=== PATIENT | female | born 1960 | race African-American/Black ===

== ENCOUNTER 2018-10-02 18:43 | Emergency (ER) | payer SELFPAY ==
[2018-10-02] MEDS ORDERED: diphenhydrAMINE 50 MG/ML VIAL ONE (22:20)
[2018-10-02] MEDS ORDERED: Metoclopramide HCl 10 MG/2 ML VIAL ONE (22:20)
--- NOTE | 2018-10-02 22:28 | CT ---
CT head noncontrast HISTORY: Headache. FINDINGS: No comparison. There is no evidence of acute intracranial hemorrhage or infarct. Ventricles appear normal in size, shape and position. Prominent ossification of the anterior falx. Visualized paranasal sinuses remain well-aerated. IMPRESSION: No acute intracranial abnormalities are demonstrated.
--- NOTE | 2018-10-02 22:29 | RAD ---
Left shoulder 3 views HISTORY: Left shoulder pain. FINDINGS: Acromioclavicular and glenohumeral alignment are maintained with mild osteophytosis. No acu te fracture, dislocation, or aggressive osseous erosions. IMPRESSION: Mild degenerative changes left shoulder.
== END 2018-10-03 00:32 | disposition home or self-care (01) ==
LOC: ERS 18:43
DX: R51 Headache (principal); F32.9 Major depressive disorder, single episode, unspecified
CPT/HCPCS: 70450; 96365; 96375; J1200; J2765

== ENCOUNTER 2018-10-15 11:01 | Emergency (ER) | payer SELFPAY | END 2018-10-15 14:15 | disposition home or self-care (01) | LOC: ERS 11:01 | DX: R51 Headache (principal); F32.9 Major depressive disorder, single episode, unspecified | CPT/HCPCS: 99283 ==

== ENCOUNTER 2018-10-19 08:25 | Emergency (ER) | payer SELFPAY | END 2018-10-19 09:35 | disposition home or self-care (01) | LOC: ERS 08:25 | DX: J20.9 Acute bronchitis, unspecified (principal); F32.9 Major depressive disorder, single episode, unspecified | CPT/HCPCS: 99284 ==

== ENCOUNTER 2024-07-10 11:10 | Emergency (ER) | payer SELFPAY ==
[2024-07-10] MEDS ORDERED: Ketorolac Tromethamine 30 MG (1 mL) VIAL ONE (11:25)
== END 2024-07-10 11:30 | disposition home or self-care (01) ==
LOC: ERS 11:10
DX: M17.12 Unilateral primary osteoarthritis, left knee (principal); I10 Essential (primary) hypertension; Z55.6 Problems related to health literacy; Z75.3 Unavailability and inaccessibility of health-care facilities
CPT/HCPCS: 99283; J1885

== ENCOUNTER 2024-07-19 09:27 | Emergency (ER) | payer SELFPAY ==
[2024-07-19] MEDS ORDERED: Ketorolac Tromethamine 30 MG (1 mL) VIAL ONE (10:32)
== END 2024-07-19 10:45 | disposition home or self-care (01) ==
LOC: ERS 09:27
DX: M17.12 Unilateral primary osteoarthritis, left knee (principal); I10 Essential (primary) hypertension
CPT/HCPCS: 96372; 99283; J1885

== ENCOUNTER 2024-08-03 13:42 | Emergency (ER) | payer SELFPAY ==
[2024-08-03] MEDS ORDERED: Ketorolac Tromethamine 30 MG (1 mL) VIAL ONE (14:07)
== END 2024-08-03 14:18 | disposition home or self-care (01) ==
LOC: ERS 13:42
DX: M17.12 Unilateral primary osteoarthritis, left knee (principal); I10 Essential (primary) hypertension
CPT/HCPCS: 96372; 99282; J1885